=== PATIENT | female | born 1945 | race Caucasian/White ===

== ENCOUNTER → 2016-07-04 | Outpatient (CLI) | payer MEDICARE | LOC: RAD 07:51 | PROVIDERS: ATTEND Family Medicine | DX: Z12.31 Encounter for screening mammogram for malignant neoplasm of breast (principal) ==

== ENCOUNTER → 2016-09-14 | Outpatient (CLI) | payer MEDICARE ==
[~2016-09-14] MED LIST: ACET325T38 PO; AML2.5T PO; ASPI-345 PO; ATN25T PO; CHOL200012 PO; EST025TD TOP; GABA100C PO; MAGN400O7 PO; NITR1PAT27 PO; OMEP40CA36 PO; SCR1T1 PO; SIMV20TA PO; SUCR1TAB29 PO
[2016-09-14 19:05] VITALS: BP 148/78
--- NOTE | 2016-09-14 19:05 | Urgent Care T Sheet Gen (E) ---
Intake General Temperature (Fahrenheit): 98.2 Pulse: 70 Blood Pressure Systolic: 148 Blood Pressure Diastolic: 78 Respirations: 18 SPO2: 98 Description of Symptoms Patient presents with an allergic reaction to Capsaicin cream. Patient applied some for the first time ever to the back of her neck and to the L lower back. Immediately she felt pain, tingling, warmth to the area. States she washed it immediately however could still feel irritation. States the redness and itching started soon after. Patient applied some topical Benadryl to the area as well as an ice pack. States it is better but still bothering her. Called PCP who suggested she come here. No SOB or difficulty breathing. 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 History of Present Illness Allergies: Coded Allergies: Penicillins (Verified Allergy, 06/20/12) Sulfamethoxazole (Verified Allergy, 07/06/12) clindamycin (Verified Allergy, 07/06/12) doxycycline (Verified Allergy, 07/06/12) trimethoprim (Verified Allergy, 07/06/12) Uncoded Allergies: NARCOTIC (Allergy, 07/06/12) Home Meds Reported Medications Sucralfate (Carafate)1 Gm Tablet1 Gm PO QIDACHS 07/08/12 Sucralfate 1 Gm Tablet1 Gm PO PRN 07/08/12 Magnesium Hydroxide (Milk of Magnesia 400mg/5ml)400 Mg/5 Ml Oral.susp30 Ml PO DAILY PRN 07/08/12 Acetaminophen (Tylenol)325 Mg [id number] Mg PO Q4H PRN 07/08/12 Atenolol 25 Mg Srjynv00 Mg PO DAILY 07/08/12 Amlodipine Besylate 2.5 Mg Tablet2.5 Mg PO DAILY 07/06/12 Nitroglycerin (Nitro-Dur)0.4 Mg/Patch Patch0.4 Mg PO PRN 07/06/12 Omeprazole 40 Mg Capsule.dr40 Mg PO DAILY 07/06/12 Cholecalciferol (Vitamin D3) (D-2000)2,000 Unit Capsule2,000 Unit PO DAILY 07/06/12 Aspirin 81 Mg Wlbsyg41 Mg PO DAILY 07/06/12 Estradiol (Climara Patch)0.025 Mg Patch1 Patch TOP WEEKLY 06/20/12 Gabapentin (Neurontin)100 Mg Kianhqd302 Mg PO HS 06/20/12 Gabapentin (Neurontin)100 Mg [id number] Mg PO DAILY 06/20/12 Simvastatin (Zocor)20 Mg Kpktgi32 Mg PO HS 06/20/12 Respiratory Constitutional Symptoms: No syptoms reported EENTM: No symptoms reported Respiratory: No symptoms reported Cardiovascular: No symptoms reported Skin: Rash All Other Systems Reviewed Remaining Systems: All other systems reviewed with negative findings Past Ziqkjwh-[id number]-Khcwtc Hx Patient's Social History Infectious Disease Exposure: No Recent foreign travel: No Surgeries/Hospitalizations Hospitalization/Surgery Hx: HEART CATH, CRAINOTOMY, SINUS SURGERY, HYSTERECTOMY Respiratory Respiratory History: None Cardiovascular Cardiovascular History: Hypertension, Chest Pain, Hypercholesterolemia Comment: HEART SPASMS Neuro/Muscular Neuro/Muscular History: Cataracts Genitouinary Genitourinary History: None Gastrointestinal GI/Endocrine History: GERD Diabetes Diabetes: No HEENT Impaired Vision: Glasses Hearing Impaired: None Integumentary Integumentary History: None Cancer History of Cancer?: No Psychosocial Behavior Disorders: None Blood Transfusions Hx of Blood transfusions: No Reaction to blood transfusion: No Physical Exam Physical Exam General Appearance: WD/WN No apparent distress Respiratory Exam: No respiratory distress Skin Exam: Rash (red, flat, blanchable rash noted along the posterior neck and L lower back. slight warmth to the area. no blistering or red streaking. no drainage from the rash. area isn't overly sensitive.) Departure Urgent Care Impression Impression: Primary Impression: Allergic contact dermatitis Qualified Code: L23.3 - Allergic contact dermatitis due to drugs in contact with skin Departure Disposition: 01 HOME OR SELF-CARE Condition: Stable Referrals: Reynaldo Ng MD (PCP) Additional Instructions: The patient appears to be having an allergic reaction to the capsaicin cream. The skin looks irritated but doesn't look infected or like SJS She is to DC the cream. Instructed her to take oral Benadryl 50mg now then repeat in 4 hours Continue with ice. May continue with topical Benadryl as needed Watch for worsening symptoms. If worse, she is to return to for recheck. Opted against a steroid or Silvadene cream as the skin is already irritated and I think the above treatment will be sufficient. Patient understands DC instructions. All questions were answered. End of report . STEFAN CARMONA Sep 14, 2016 19:05
== END ==
LOC: MHUC 17:37
PROVIDERS: ATTEND Physician Assistant
DX: L23.3 Allergic contact dermatitis due to drugs in contact with skin (principal); T49.8X5A Adverse effect of other topical agents, initial encounter
CPT/HCPCS: 99213

== ENCOUNTER 2016-11-04 09:45 | Outpatient (RCR) | payer MEDICARE | END 2016-11-07 11:10 | disposition home or self-care (01) | LOC: PT 09:45 | PROVIDERS: ATTEND Otolaryngology | DX: H81.12 Benign paroxysmal vertigo, left ear (principal) | CPT/HCPCS: 95992; 97161; G8981; G8982 ==